=== PATIENT | female | born 1990 | race Hispanic/Latino ===

== ENCOUNTER → 2018-04-08 | Day surgery (SDC) | payer BC ==
[2018-04-05 10:35] LABS: BASOPHILS % 0.2 % (0.0-1.0); EOSINOPHILS # (AUTO) 0.2 (0.0-0.4); EOSINOPHILS % 2.4 % (0.0-6.0); HEMOGLOBIN 12.8 g/dL (12.0-16.0); LYMPHOCYTES % 22.3 % (18.0-39.1); MEAN CORPUSCULAR HEMOGLOBIN 25.4 pg (28-32); MEAN CORPUSCULAR VOLUME 79.5 fL (81-99); MONOCYTES # (AUTO) 0.5 (0.2-0.8); NEUTROPHILS # (AUTO) 6.1 (2.1-6.9); NEUTROPHILS % 68.8 % (38.7-80.0); PLATELET COUNT 329 x10e3/uL (140-360); RED BLOOD COUNT 5.03 x10e6/uL (3.6-5.1); RED CELL DISTRIBUTION WIDTH 13.5 % (11.7-14.4)
[~2018-04-08] MED LIST: DEXAMETHASONE SOD PHOS INJ 4 MG/ML VIAL ONE; FENTANYL CITRATE/PF 100MCG/2 ML INJ ONE; KETOROLAC TROMETHAMINE 30 MG/ML VIAL ONE; LIDOCAINE HCL 2% LOCAL INJ 5 ML SDV VIAL INJ ONE; MIDAZOLAM HCL 2 MG/2 ML VIAL ONE; ONDANSETRON HCL INJ 2 MG/ML VIAL ONE; PROPOFOL IV EMULSION 10 MG/ML 20 ML VIAL ONE; SEVOFLURANE INHAL SOLN 250 ML PEN BTL ONE
--- NOTE | 2018-04-08 09:32 | Operative Report ---
DATE OF PROCEDURE: April 08, 2018 PREOPERATIVE DIAGNOSES 1. Abnormal uterine bleeding. 2. Pelvic pain. POSTOPERATIVE DIAGNOSES 1. Abnormal uterine bleeding. 2. Pelvic pain. PROCEDURES: Hysteroscopy, hysteroscopic myomectomy, dilatation and curettage. COMPLICATIONS: None. ESTIMATED BLOOD LOSS: Minimal. DESCRIPTION OF PROCEDURE: The patient was taken to the OR, and general anesthesia was placed. She was prepped and draped in the normal sterile fashion. She was placed in the dorsal lithotomy position. On examination under anesthesia, the uterus is slightly enlarged and mobile. No adnexal masses. A weighted speculum was placed inside the vagina. The cervix was grasped with a single-tooth tenaculum. The cervix was dilated to Hegar 8. Cavity length measured about 9 cm. The Truclear large-bore 4-mm hysteroscope was passed through the cervix into the uterine cavity, after dilating the cervix to Hegar 10. 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 Using the Truclear shaver, the fibroids were removed and sent to pathology. Soft curettings were obtained and sent to pathology. The patient tolerated the procedure well. The lap, instrument and needle count was correct x2 at the end of the procedure. Job#: [id number]
[2018-04-08 10:20] VITALS: BP 106/77
== END | disposition home or self-care (01) ==
LOC: OR 05:23
PROVIDERS: ATTEND Obstetrics & Gynecology
DX: D25.9 Leiomyoma of uterus, unspecified (principal); Z87.891 Personal history of nicotine dependence
CPT/HCPCS: 36415; 58561; 81025; 84702; 85025; 88305; J1100; J1885; J2001; J2250; J2405; 88304